=== PATIENT | female | born 1930 | race American Indian/Alaskan Native ===

== ENCOUNTER 2017-03-31 18:28 | Inpatient (IN) | payer MEDICARE ==
[~2017-03-31] VITALS: Ht 152.4 cm; Wt 78.2 kg
[~2017-03-31 18:28] MED LIST: ASPI-496 PO; CALC0.25 PO; CARV12.52 PO; CHOL200040 PO; CIPR500T87 PO; ERGO500017 PO; ERTA1VIA IV; FERR325T63 PO; FURO-93 PO; HYDR-3237 PO; LANS15CA60 PO
[2017-03-31] MEDS ORDERED: ONDANSETRON 2MG/ML, 2ML ONE (18:37)
[2017-03-31] MEDS ORDERED: NOREPINEPHRINE 4 MG in SODIUM CHLORIDE 0.9% 246 ML IV PRN ×2 (18:44→23:44)
[2017-03-31] MEDS ORDERED: SODIUM CHLORIDE 0.9% 1,000ML IVBOLUS ONE (19:00)
[2017-03-31] MEDS ORDERED: LIDOCAINE 2%, 20ML INFIL ONE (19:00)
[2017-03-31 19:17] LABS: WHITE BLOOD COUNT 6.4 x10^3/uL (3.4-10)
[2017-03-31 19:20] LABS: ASPARTATE AMINO TRANSFERASE 8 U/L (15-37); BLOOD UREA NITROGEN 61 mg/dL (7-18)
[2017-03-31 19:21] LABS: HEMATOCRIT 13.3 % (34.6-47.8); HEMOGLOBIN 4.5 g/dL (11.7-16.4)
[2017-03-31] MEDS ORDERED: HYDROCORTISONE 100 MG INJ. IVPush ONE (19:30)
[2017-03-31 19:37] LABS: ANISOCYTOSIS 1+; POLYCHROMASIA 1+
[2017-03-31] MEDS: VASOPRESSIN 100 UNIT in SODIUM CHLORIDE 0.9% 495 ML IV PRN (19:38)
[2017-03-31 19:40] LABS: LARGE PLATELETS 1+
[2017-03-31 21:20] VITALS: BP 96/64
[2017-03-31 21:23] VITALS: BP 96/64
[2017-03-31 22:37] VITALS: BP 126/57
[2017-03-31] MEDS ORDERED: OMNIPAQUE 350 MG/ML, 100ML BOTTLE ONE (22:51)
[2017-03-31 23:35] VITALS: BP 100/80
[2017-04-01] MEDS ORDERED: PHARMACY MAY ADJ FOR RENAL FX MC PRN
[2017-04-01] MEDS ORDERED: ONDANSETRON 2MG/ML, 2ML IVPush PRN
[2017-04-01] MEDS ORDERED: PANTOPRAZOLE 80 MG in SODIUM CHLORIDE 0.9% 100 ML IV SCH
[2017-04-01 01:02] VITALS: BP 147/79
[2017-04-01] MEDS: VASOPRESSIN 100 UNIT in SODIUM CHLORIDE 0.9% 495 ML IV PRN ×2 (01:15→01:17)
[2017-04-01 01:35] LABS: ABG COLLECTION SITE LEFT BRACHIAL
[2017-04-01] MEDS: HYDROCORTISONE 100 MG INJ. IV SCH ×2 (01:39→08:00)
[2017-04-01] MEDS: SODIUM CHLORIDE FLUSH 10ML SYR IVF SCH ×3 (01:40→20:46)
[2017-04-01 02:01] LABS: IS PT STATUS REG ER OR PRE ER? NO
[2017-04-01 04:00] VITALS: BP 107/53
[2017-04-01] MEDS ORDERED: DARBEPOETIN 100 MCG/ML SQ SCH (10:30)
[2017-04-01 19:36] VITALS: BP 114/64
[2017-04-02 01:34] VITALS: BP 97/57
[2017-04-02 05:32] LABS: ASPARTATE AMINO TRANSFERASE 18 U/L (15-37); BLOOD UREA NITROGEN 80 mg/dL (7-18)
[2017-04-02 05:40] LABS: HEMOGLOBIN 7.3 g/dL (11.7-16.4); WHITE BLOOD COUNT 7.7 x10^3/uL (3.4-10)
[2017-04-02 05:41] LABS: FERRITIN 1862.3 ng/mL (8-252); TOTAL IRON BINDING CAPACITY 264 mcg/dL (250-450)
[2017-04-02 05:53] LABS: HEMATOCRIT 21.2 % (34.6-47.8)
[2017-04-02 06:15] LABS: ANISOCYTOSIS 1+; ECHINOCYTES 1+; ROULEAUX 1+
[2017-04-02 06:16] LABS: OVALOCYTES 1+
[2017-04-02 06:25] VITALS: BP 116/59
[2017-04-02 07:10] VITALS: BP 122/69
[2017-04-02] MEDS: SODIUM CHLORIDE FLUSH 10ML SYR IVF SCH ×2 (09:00→20:26)
[2017-04-02] MEDS ORDERED: LIDOCAINE 2%, 20ML ONE ×3 (10:10→15:38)
[2017-04-02] MEDS ORDERED: NALOXONE 1 MG/ML, 2ML ONE ×2 (10:30→14:27)
[2017-04-02] MEDS ORDERED: FENTANYL PF 100 MCG/2ML ONE ×2 (10:30→14:27)
[2017-04-02] MEDS ORDERED: FLUMAZENIL 0.1 MG/1 ML, 5ML ONE ×2 (10:30→14:27)
[2017-04-02] MEDS ORDERED: MIDAZOLAM 1 MG/ML, 5ML ONE ×2 (10:30→14:27)
[2017-04-02] MEDS ORDERED: CEFAZOLIN PMX 1GM/50ML 50 ML ONE (11:10)
[2017-04-02] MEDS ORDERED: VISIPAQUE 270 MG/ML, 50ML BOTTLE ONE ×2 (11:53→15:59)
[2017-04-02 13:24] VITALS: BP 115/67
[2017-04-02 16:10] LABS: HEMATOCRIT 24.3 % (34.6-47.8); HEMOGLOBIN 8.3 g/dL (11.7-16.4)
[2017-04-02 20:36] VITALS: BP 113/64
[2017-04-03 01:50] VITALS: BP 97/54
[2017-04-03] MEDS: ACETAMINOPHEN 325 MG TABLET PO PRN ×2 (03:20→20:27)
[2017-04-03 06:18] LABS: BLOOD UREA NITROGEN 39 mg/dL (7-18); WHITE BLOOD COUNT 6.5 x10^3/uL (3.4-10)
[2017-04-03 06:19] LABS: HEMATOCRIT 22.9 % (34.6-47.8)
[2017-04-03 06:23] LABS: ASPARTATE AMINO TRANSFERASE 16 U/L (15-37)
[2017-04-03 06:25] VITALS: BP 92/50
[2017-04-03 07:04] LABS: DIFF TOTAL CELLS COUNTED 100 CELL DIFF
[2017-04-03 07:30] LABS: VERIFY COUNTS? YES
[2017-04-03 07:31] LABS: ANISOCYTOSIS 1+; OVALOCYTES 1+; ROULEAUX 1+
[2017-04-03] MEDS: SODIUM CHLORIDE FLUSH 10ML SYR IVF SCH ×2 (09:00→20:27)
[2017-04-03 09:39] LABS: HEP B SURF. AB 326.4 mIU/mL (0.0-10.0)
[2017-04-03 12:32] VITALS: BP 107/58
[2017-04-03 18:29] VITALS: BP 125/56
[2017-04-04] VITALS (9 sets, daily range): BP systolic 92–136; BP diastolic 57–73
[2017-04-04 05:44] LABS: HEMOGLOBIN 7.3 g/dL (11.7-16.4); WHITE BLOOD COUNT 4.6 x10^3/uL (3.4-10)
[2017-04-04 05:47] LABS: BLOOD UREA NITROGEN 25 mg/dL (7-18)
[2017-04-04 05:49] LABS: HEMATOCRIT 21.2 % (34.6-47.8)
[2017-04-04 05:50] LABS: ASPARTATE AMINO TRANSFERASE 14 U/L (15-37)
[2017-04-04] MEDS: SODIUM CHLORIDE FLUSH 10ML SYR IVF SCH ×2 (09:33→21:36)
[2017-04-04] MEDS ORDERED: LACTULOSE 20 GM/30 ML UDC PO PRN (13:30)
[2017-04-04] MEDS ORDERED: BISACODYL 10 MG SUPP PR PRN (13:30)
[2017-04-04] MEDS ORDERED: SENNOSIDES 8.8 MG/5 ML ORAL SOL NG SCH (21:00)
[2017-04-04] MEDS: SENNA/DOCUSATE TABLET PO SCH (21:36)
[2017-04-05 01:31] VITALS: BP 105/62
[2017-04-05 06:12] LABS: HEMATOCRIT 30.5 % (34.6-47.8); HEMOGLOBIN 10.5 g/dL (11.7-16.4); WHITE BLOOD COUNT 5.4 x10^3/uL (3.4-10)
[2017-04-05 06:32] LABS: BLOOD UREA NITROGEN 19 mg/dL (7-18)
[2017-04-05 07:20] VITALS: BP 124/62
[2017-04-05] MEDS ORDERED: DOCUSATE 100 MG CAPSULE PO SCH (09:00)
[2017-04-05] MEDS ORDERED: DOCUSATE 50 MG/5 ML, 10ML UDC NG SCH (09:00)
[2017-04-05] MEDS: SENNA/DOCUSATE TABLET PO SCH (09:45)
[2017-04-05] MEDS: SODIUM CHLORIDE FLUSH 10ML SYR IVF SCH (09:46)
[2017-04-05 12:25] VITALS: BP 131/69
[2017-04-05] MEDS ORDERED: TRAM50TA2 PO (12:48)
[2017-04-05 13:00] LABS: OCCBLD OBC PASS
== END 2017-04-05 15:25 | disposition home or self-care (01) | DRG 314 ==
LOC: ED 20:03 → EDIP 21:10 → ICU 04-01 00:28 → 4EST 04-01 15:49
PROVIDERS: ADMIT Surgery; ATTEND Surgery
PROC: 30233L1 Transfusion of Nonautologous Fresh Plasma into Peripheral Vein, Percutaneous Approach (ICD-10-PCS; 2017-03-31)
PROC: 30233N1 Transfusion of Nonautologous Red Blood Cells into Peripheral Vein, Percutaneous Approach (ICD-10-PCS; 2017-03-31)
PROC: 30233K1 Transfusion of Nonautologous Frozen Plasma into Peripheral Vein, Percutaneous Approach (ICD-10-PCS; 2017-03-31)
PROC: 0T9B70Z Drainage of Bladder with Drainage Device, Via Natural or Artificial Opening (ICD-10-PCS; principal; 2017-04-01)
PROC: 03JY3ZZ Inspection of Upper Artery, Percutaneous Approach (ICD-10-PCS; 2017-04-02)
PROC: 06HN33Z Insertion of Infusion Device into Left Femoral Vein, Percutaneous Approach (ICD-10-PCS; 2017-04-02)
PROC: B54CZZA Ultrasonography of Left Lower Extremity Veins, Guidance (ICD-10-PCS; 2017-04-02)
PROC: B51C1ZA Fluoroscopy of Left Lower Extremity Veins using Low Osmolar Contrast, Guidance (ICD-10-PCS; 2017-04-02)
PROC: 5A1D70Z Performance of Urinary Filtration, Intermittent, Less than 6 Hours Per Day (ICD-10-PCS; 2017-04-02)
PROC: 0JHM3XZ Insertion of Tunneled Vascular Access Device into Left Upper Leg Subcutaneous Tissue and Fascia, Percutaneous Approach (ICD-10-PCS; 2017-04-02)
PROC: 5A1D70Z Performance of Urinary Filtration, Intermittent, Less than 6 Hours Per Day (ICD-10-PCS; 2017-04-03)
PROC: 5A1D70Z Performance of Urinary Filtration, Intermittent, Less than 6 Hours Per Day (ICD-10-PCS; 2017-04-04)
DX: T82.868A Thrombosis due to vascular prosthetic devices, implants and grafts, initial encounter (principal); R57.1 Hypovolemic shock; I13.2 Hypertensive heart and chronic kidney disease with heart failure and with stage 5 chronic kidney disease, or end stage renal disease; E46 Unspecified protein-calorie malnutrition; E87.2 Acidosis; I95.3 Hypotension of hemodialysis; D62 Acute posthemorrhagic anemia; E83.51 Hypocalcemia; G93.89 Other specified disorders of brain; I27.20 Pulmonary hypertension, unspecified; N18.6 End stage renal disease; J98.11 Atelectasis; I50.30 Unspecified diastolic (congestive) heart failure; I69.354 Hemiplegia and hemiparesis following cerebral infarction affecting left non-dominant side; I25.10 Atherosclerotic heart disease of native coronary artery without angina pectoris; D63.8 Anemia in other chronic diseases classified elsewhere; F03.90 Unspecified dementia, unspecified severity, without behavioral disturbance, psychotic disturbance, mood disturbance, and anxiety; G89.29 Other chronic pain; K44.9 Diaphragmatic hernia without obstruction or gangrene; K57.90 Diverticulosis of intestine, part unspecified, without perforation or abscess without bleeding; M19.90 Unspecified osteoarthritis, unspecified site; S20.211A Contusion of right front wall of thorax, initial encounter; Y83.2 Surgical operation with anastomosis, bypass or graft as the cause of abnormal reaction of the patient, or of later complication, without mention of misadventure at the time of the procedure; M54.9 Dorsalgia, unspecified; Y84.8 Other medical procedures as the cause of abnormal reaction of the patient, or of later complication, without mention of misadventure at the time of the procedure; Y92.89 Other specified places as the place of occurrence of the external cause; Z90.49 Acquired absence of other specified parts of digestive tract; Z99.2 Dependence on renal dialysis
CPT/HCPCS: 36415; 36556; 36565; 70450; 71010; 71250; 74176; 76937; 77001; 80053; 80069; 81001; 82272; 82306; 82533; 82607; 82728; 82746; 82803; 82962; 83036; 83540; 83550; 83605; 83735; 83970; 84100; 84484; 84550; 85014; 85018; 85025; 85610; 85730; 86705; 86706; 86850; 86900; 86923; 87040; 87081; 87086; 87340; 93005; 93306; 96365; 96366; 96375; 99156; 99157; C1894; J0690; J0881; J2250; J2405; J3010; J3490; Q9966; Q9967; C1750; C1769; C9113; J1642; J1720; J2310; J7030; J7040; J7050; P9016; P9017

== ENCOUNTER 2017-04-08 17:25 | Inpatient (IN) | payer MEDICARE ==
[~2017-04-08] VITALS: Ht 160 cm; Wt 73.3 kg
[~2017-04-08 17:25] MED LIST changes: +TRAM50TA2 PO
[2017-04-08 19:30] LABS: ANION GAP 8 mmol/L (5-15); CALCIUM 8.8 mg/dL (8.5-10.1); CHLORIDE 106 mmol/L (98-107); CREATININE 5.28 mg/dL (0.55-1.02)
[2017-04-08 19:47] LABS: BASOPHILS # (AUTO) 0.02 x10^3/uL (0-0.1); BASOPHILS % (AUTO) 0 % (0-1); EOSINOPHILS # (AUTO) 0.19 x10^3/uL (0-0.4); EOSINOPHILS % (AUTO) 3 % (1-7); LYMPHOCYTES # (AUTO) 0.81 x10^3/uL (1-3.4); LYMPHOCYTES % (AUTO) 12 % (22-44); MD MORPH REVIEW ONLY; MEAN CORPUSCULAR HEMOGLOBIN 32.5 pg (27.0-34.8); MEAN CORPUSCULAR HGB CONC 33.7 g/dL (32.4-35.8); MEAN CORPUSCULAR VOLUME 96.6 fL (80-100); MEAN PLATELET VOLUME 8.6 fL (7.4-10.4); MONOCYTES # (AUTO) 0.63 x10^3/uL (0.2-0.8); MONOCYTES % (AUTO) 9 % (2-9); NEUTROPHILS # (AUTO) 5.13 x10^3/uL (1.8-6.8); NEUTROPHILS % (AUTO) 76 % (42-75); PLATELET COUNT 134 x10^3/uL (130-400); RED BLOOD COUNT 3.61 x10^6/uL (3.82-5.3); RED CELL DISTRIBUTION WIDTH 18.1 % (9.6-15.2)
[2017-04-08 19:48] LABS: <PLATELET ESTIMATE> ADEQUATE; ANISOCYTOSIS 2+; POLYCHROMASIA 1+
[2017-04-08 19:49] LABS: <PLT MORPHOLOGY> NORMAL PLT MORPH
[2017-04-08] MEDS ORDERED: SODIUM CHLORIDE FLUSH 10ML SYR IVF ONE (20:00)
[2017-04-08 20:11] LABS: TROPONIN I < 0.015 ng/mL (0.000-0.045)
[2017-04-09 00:15] VITALS: BP 154/69
[2017-04-09] MEDS ORDERED: ACETAMINOPHEN 325 MG TABLET PO PRN (00:30)
[2017-04-09] MEDS ORDERED: ONDANSETRON 2MG/ML, 2ML IVPush PRN (00:30)
[2017-04-09] MEDS ORDERED: ONDANSETRON ODT 4 MG PO PRN (00:30)
[2017-04-09] MEDS ORDERED: ERGOCALCIFEROL 50,000 UNIT CAPSULE PO SCH (00:30)
[2017-04-09] MEDS: INSULIN ASPART 100 UNITS/ML, PEN SQ-INSULIN SCH ×3 (00:30→11:00)
[2017-04-09] MEDS ORDERED: PROMETHAZINE 25 MG/ML, 1ML IM PRN (00:30)
[2017-04-09] MEDS: HEPARIN 5,000 UNITS/ML, 1ML SQ SCH ×2 (01:06→09:20)
[2017-04-09 02:30] LABS: TROPONIN I < 0.015 ng/mL (0.000-0.045)
[2017-04-09 03:35] VITALS: BP 141/63
[2017-04-09 05:28] LABS: BASOPHILS # (AUTO) 0.02 x10^3/uL (0-0.1); BASOPHILS % (AUTO) 0 % (0-1); EOSINOPHILS % (AUTO) 3 % (1-7); LYMPHOCYTES # (AUTO) 0.73 x10^3/uL (1-3.4); LYMPHOCYTES % (AUTO) 12 % (22-44); MD NO; MEAN CORPUSCULAR HEMOGLOBIN 32.3 pg (27.0-34.8); MEAN CORPUSCULAR HGB CONC 33.5 g/dL (32.4-35.8); MEAN CORPUSCULAR VOLUME 96.5 fL (80-100); MEAN PLATELET VOLUME 8.5 fL (7.4-10.4); MONOCYTES # (AUTO) 0.65 x10^3/uL (0.2-0.8); MONOCYTES % (AUTO) 11 % (2-9); NEUTROPHILS # (AUTO) 4.49 x10^3/uL (1.8-6.8); NEUTROPHILS % (AUTO) 74 % (42-75); PLATELET COUNT 125 x10^3/uL (130-400); RED CELL DISTRIBUTION WIDTH 18.3 % (9.6-15.2)
[2017-04-09 05:44] LABS: CHLORIDE 108 mmol/L (98-107)
[2017-04-09 05:59] LABS: ALANINE AMINOTRANSFERASE 8 U/L (12-78); ALBUMIN 2.5 g/dL (3.4-5.0); ALKALINE PHOSPHATASE 130 U/L (45-117); ANION GAP 7 mmol/L (5-15); BILIRUBIN,TOTAL 1.4 mg/dL (0.2-1.0); CALCIUM 8.5 mg/dL (8.5-10.1); CREATININE 5.53 mg/dL (0.55-1.02); TOTAL PROTEIN 5.9 g/dL (6.4-8.2); TROPONIN I < 0.015 ng/mL (0.000-0.045)
[2017-04-09 07:18] VITALS: BP 138/67
[2017-04-09] MEDS ORDERED: PANTOPRAZOLE 20MG TABLET PO SCH (09:00)
[2017-04-09] MEDS: CARVEDILOL 3.125 MG TABLET PO SCH ×2 (09:20→21:00)
[2017-04-09] MEDS: CALCITRIOL 0.25 MCG CAPSULE PO SCH (09:20)
[2017-04-09 13:23] VITALS: BP 144/64
[2017-04-09] MEDS ORDERED: SODIUM CHLORIDE 0.9% 1,000 ML IV SCH (13:41)
[2017-04-09 14:30] LABS: INTERNATIONAL NORMALIZED RATIO 1.04 (0.93-1.1); PROTHROMBIN TIME 10.7 Seconds (9.6-11.5)
[2017-04-09] MEDS: PANTOPRAZOLE 40 MG IV IVPush SCH (14:48)
[2017-04-09] MEDS ORDERED: FENTANYL PF 100 MCG/2ML ONE (15:10)
[2017-04-09] MEDS ORDERED: CEFAZOLIN PMX 1GM/50ML 50 ML ONE (15:10)
[2017-04-09] MEDS ORDERED: LIDOCAINE 1%, 10ML ONE (15:19)
[2017-04-09] MEDS ORDERED: VISIPAQUE 270 MG/ML, 50ML BOTTLE ONE (16:16)
[2017-04-10 00:18] VITALS: BP 117/61
[2017-04-10] MEDS: PANTOPRAZOLE 40 MG IV IVPush SCH (02:33)
[2017-04-10 02:36] VITALS: BP 131/68
[2017-04-10 06:13] LABS: BASOPHILS # (AUTO) 0.02 x10^3/uL (0-0.1); BASOPHILS % (AUTO) 0 % (0-1); EOSINOPHILS # (AUTO) 0.13 x10^3/uL (0-0.4); EOSINOPHILS % (AUTO) 2 % (1-7); LYMPHOCYTES # (AUTO) 1.06 x10^3/uL (1-3.4); LYMPHOCYTES % (AUTO) 20 % (22-44); MD NO; MEAN CORPUSCULAR HEMOGLOBIN 32.6 pg (27.0-34.8); MEAN CORPUSCULAR HGB CONC 33.5 g/dL (32.4-35.8); MEAN CORPUSCULAR VOLUME 97.2 fL (80-100); MEAN PLATELET VOLUME 8.3 fL (7.4-10.4); MONOCYTES # (AUTO) 0.49 x10^3/uL (0.2-0.8); MONOCYTES % (AUTO) 9 % (2-9); NEUTROPHILS # (AUTO) 3.53 x10^3/uL (1.8-6.8); NEUTROPHILS % (AUTO) 68 % (42-75); PLATELET COUNT 115 x10^3/uL (130-400); RED BLOOD COUNT 3.39 x10^6/uL (3.82-5.3); RED CELL DISTRIBUTION WIDTH 19.6 % (9.6-15.2)
[2017-04-10 06:30] LABS: CHLORIDE 107 mmol/L (98-107)
[2017-04-10 06:58] LABS: ALBUMIN 2.6 g/dL (3.4-5.0); ALKALINE PHOSPHATASE 118 U/L (45-117); ANION GAP 8 mmol/L (5-15); BILIRUBIN,TOTAL 1.1 mg/dL (0.2-1.0); CALCIUM 8.4 mg/dL (8.5-10.1)
[2017-04-10 07:03] LABS: ALANINE AMINOTRANSFERASE < 6 U/L (12-78)
[2017-04-10 08:00] VITALS: BP 128/68
[2017-04-10] MEDS ORDERED: HEMORRHOIDAL OINT, 28 GM (PREP H) RC PRN (09:30)
[2017-04-10] MEDS: HYDROCORTISONE 25 MG SUPP PR SCH (09:30)
[2017-04-10] MEDS: CALCITRIOL 0.25 MCG CAPSULE PO SCH (10:33)
[2017-04-10] MEDS: CARVEDILOL 3.125 MG TABLET PO SCH ×2 (10:35→21:30)
[2017-04-10] MEDS: PANTOPROZOLE 40MG TABLET PO SCH (13:26)
[2017-04-10 14:23] VITALS: BP 120/70
[2017-04-10 19:12] VITALS: BP 143/61
[2017-04-10 21:27] VITALS: BP 142/69
[2017-04-11 01:43] VITALS: BP 152/70
[2017-04-11] MEDS: PANTOPROZOLE 40MG TABLET PO SCH ×2 (01:51→13:49)
[2017-04-11 01:52] VITALS: BP 142/61
[2017-04-11 05:10] LABS: BASOPHILS # (AUTO) 0.02 x10^3/uL (0-0.1); BASOPHILS % (AUTO) 0 % (0-1); EOSINOPHILS # (AUTO) 0.15 x10^3/uL (0-0.4); EOSINOPHILS % (AUTO) 3 % (1-7); LYMPHOCYTES # (AUTO) 1.01 x10^3/uL (1-3.4); LYMPHOCYTES % (AUTO) 21 % (22-44); MD NO; MEAN CORPUSCULAR HEMOGLOBIN 32.7 pg (27.0-34.8); MEAN CORPUSCULAR HGB CONC 33.5 g/dL (32.4-35.8); MEAN CORPUSCULAR VOLUME 97.8 fL (80-100); MEAN PLATELET VOLUME 8.8 fL (7.4-10.4); MONOCYTES # (AUTO) 0.57 x10^3/uL (0.2-0.8); MONOCYTES % (AUTO) 12 % (2-9); NEUTROPHILS # (AUTO) 3.11 x10^3/uL (1.8-6.8); NEUTROPHILS % (AUTO) 64 % (42-75); PLATELET COUNT 122 x10^3/uL (130-400); RED BLOOD COUNT 3.32 x10^6/uL (3.82-5.3); RED CELL DISTRIBUTION WIDTH 19.7 % (9.6-15.2)
[2017-04-11 05:19] LABS: CHLORIDE 110 mmol/L (98-107)
[2017-04-11 05:24] LABS: ANION GAP 9 mmol/L (5-15); CALCIUM 8.2 mg/dL (8.5-10.1)
[2017-04-11 07:39] VITALS: BP 133/71
[2017-04-11] MEDS: HYDROCORTISONE 25 MG SUPP PR SCH (08:41)
[2017-04-11] MEDS: CARVEDILOL 3.125 MG TABLET PO SCH (08:42)
[2017-04-11] MEDS: CALCITRIOL 0.25 MCG CAPSULE PO SCH (09:00)
[2017-04-11] MEDS ORDERED: LANS15CA60 PO (14:17)
[2017-04-11] MEDS ORDERED: HYDR25SU3 PR (14:17)
[2017-04-11 16:31] VITALS: BP 111/66
== END 2017-04-11 17:43 | disposition home or self-care (01) | DRG 314 ==
LOC: ED 20:58 → EDIP 20:59 → ED 21:03 → 4EST 23:26
PROVIDERS: ADMIT Surgery; ATTEND Surgery
PROC: 0J2WXYZ Change Other Device in Lower Extremity Subcutaneous Tissue and Fascia, External Approach (ICD-10-PCS; principal; 2017-04-09)
PROC: 5A1D70Z Performance of Urinary Filtration, Intermittent, Less than 6 Hours Per Day (ICD-10-PCS; 2017-04-09)
PROC: 5A1D70Z Performance of Urinary Filtration, Intermittent, Less than 6 Hours Per Day (ICD-10-PCS; 2017-04-11)
DX: T82.868A Thrombosis due to vascular prosthetic devices, implants and grafts, initial encounter (principal); E43 Unspecified severe protein-calorie malnutrition; I13.2 Hypertensive heart and chronic kidney disease with heart failure and with stage 5 chronic kidney disease, or end stage renal disease; I27.20 Pulmonary hypertension, unspecified; E83.51 Hypocalcemia; I69.354 Hemiplegia and hemiparesis following cerebral infarction affecting left non-dominant side; N18.6 End stage renal disease; T82.41XA Breakdown (mechanical) of vascular dialysis catheter, initial encounter; I50.30 Unspecified diastolic (congestive) heart failure; D63.1 Anemia in chronic kidney disease; M54.9 Dorsalgia, unspecified; M19.90 Unspecified osteoarthritis, unspecified site; G89.29 Other chronic pain; K29.80 Duodenitis without bleeding; K44.9 Diaphragmatic hernia without obstruction or gangrene; S20.211A Contusion of right front wall of thorax, initial encounter; K57.30 Diverticulosis of large intestine without perforation or abscess without bleeding; K64.4 Residual hemorrhoidal skin tags; Y71.2 Prosthetic and other implants, materials and accessory cardiovascular devices associated with adverse incidents; Y83.2 Surgical operation with anastomosis, bypass or graft as the cause of abnormal reaction of the patient, or of later complication, without mention of misadventure at the time of the procedure; Z87.11 Personal history of peptic ulcer disease; Z99.2 Dependence on renal dialysis; Z90.49 Acquired absence of other specified parts of digestive tract; Z68.28 Body mass index [BMI] 28.0-28.9, adult
CPT/HCPCS: 36415; 36581; 71010; 75984; 80048; 80053; 82040; 82962; 83735; 84100; 84484; 85014; 85018; 85025; 85610; 86704; 86706; 87340; 93005; 99285; J0690; J1644; J3010; J3490; Q9966; C1750; C1769; C9113; J1642; J7030